=== PATIENT | male | born 1995 | race Caucasian/White ===

== ENCOUNTER 2020-07-11 12:46 | Emergency (ER) | payer MEDICAID, OTHER ==
[2020-07-11] MEDS ORDERED: Proparacaine 0.5% Ophth Soln 15 ML Bottle EYERT PRN (12:52)
[2020-07-11 12:55] VITALS: BP 177/88; PULSE 107
[2020-07-11] MEDS ORDERED: Fluorescein 1 MG Ophth Strip EYELF ONE (13:06)
[2020-07-11] MEDS ORDERED: Ciprofloxacin 0.3% Ophth Soln 2.5 ML Bottle EYELF ONE (13:16)
--- NOTE | 2020-07-11 13:21 | EDM.PDOC ---
ED HPI GENERAL MEDICAL PROBLEM - General Chief Complaint: Eye Problems Stated Complaint: METAL PC IN L EYE Time Seen by Provider: 07/11/20 12:55 Source of Information: Reports: Patient History Limitations: Reports: No Limitations - History of Present Illness INITIAL COMMENTS - FREE TEXT/NARRATIVE: Patient comes emergency department today with complaints of a metal particle in his left eye. This patient was grinding with a metal desk yesterday evening at work when he suddenly felt something strike his left eye. He thought that he got some of it out last night but he continues to have pain and he can see a foreign body on his cornea. He has no diplopia. No blurred vision. He denies a headache. His tetanus immunization is up-to-date. No Covid exposure no Covid symptoms. Left Eye Pain Score (Numeric/FACES): 1 - Related Data Allergies Allergy/AdvReac Type Severity Reaction Status Date / Time No Known Allergies Allergy Verified 07/11/20 12:57 Home Meds: Home Meds Acetaminophen/HYDROcodone [[place] 325-5 MG] 1 tab PO Q6H PRN #8 tablet 07/11/20 [Rx] Past Medical History - Past Health History Medical/Surgical History: Denies Medical/Surgical History Social & Family History - Tobacco Use Tobacco Use Status *Q: Current Every Day Tobacco User Years of Tobacco use: 5 Packs/Tins Daily: 1 ED ROS GENERAL - Review of Systems Review Of Systems: Comprehensive ROS is negative, except as noted in HPI. ED EXAM GENERAL W FULL EYE - Physical Exam Exam: See Below Exam Limited By: No Limitations General Appearance: Alert, WD/WN, No Apparent Distress Eye Exam: Bilateral Eye: EOMI, PERRL Eyelids: Bilateral: Normal Appearance Conjunctiva & Sclera: Right: Normal Appearance, Left: Foreign Body Cornea Exam: Left: Foreign Body (just outside the iris at the 3 oclock position there is a small black FB on the cornea. No other FB identified. ), Examined with Flourescein Extraocular Movements: Bilateral: Intact Pupils: Normal Accommodation Pupillary Size: Bilateral: 4 mm Pupillary Reaction: Bilateral: Brisk Ears: Normal External Exam Nose: Normal Inspection Throat/Mouth: Normal Inspection Head: Atraumatic, Normocephalic Neck: Normal Inspection, Supple Respiratory/Chest: No Respiratory Distress, Lungs Clear Cardiovascular: Normal Peripheral Pulses, Regular Rate, Rhythm (Male) Exam: Deferred (Female) Exam: Deferred Neurological: Alert, Oriented, Normal Cognition, No Motor/Sensory Deficits Psychiatric: Normal Affect, Normal Mood Skin Exam: Warm, Dry, Normal Color Course - Vital Signs Last Recorded V/S: Last Vital Signs Temp 97.7 F 07/11/20 12:50 Pulse 107 H 07/11/20 12:50 Resp 18 07/11/20 12:50 BP 177/88 H 07/11/20 12:50 Pulse Ox 97 07/11/20 12:50 - Orders/Labs/Meds Meds: Medications Discontinued Medications Generic Name Dose Route Start Last Admin Trade Name Freq PRN Reason Stop Dose Admin Ciprofloxacin 1 ml 07/11/20 13:16 07/11/20 13:26 Ciloxan 0.3% Ophth Soln EYELF 07/11/20 13:17 1 ml ONETIME ONE Administration Fluorescein Sodium 1 mg 07/11/20 13:06 07/11/20 13:10 Ful-Jackeline EYELF 07/11/20 13:07 1 mg ONETIME ONE Administration Proparacaine HCl 1 ml 07/11/20 12:52 07/11/20 13:06 Proparacaine 0.5% Ophth Soln EYERT 1 drop ASDIRECTED PRN Administration Other - Re-Assessments/Exams Free Text/Narrative Re-Assessment/Exam: 07/11/20 Initially patient's eye was anesthetized with proparacaine. Quite evident that there is a foreign material on the cornea just at the 3 o'clock position lateral of the iris. Using an eye spot I was able to easily remove the black foreign material. Fluorescein staining shows no other corneal abrasion there is a rust ring around the area of the foreign body removal. I was able to use a small ophthalmic bur and clean out the rest from the cornea. Patient tolerated the procedure well. Ciprofloxacin eyedrops were instilled. Natural course and disease process and healing was discussed with the patient. He is comfortable with this plan his questions were answered. Discharge directions as below are explained to the patient he was comfortable with this plan his questions are answered. Departure - Departure Time of Disposition: 13:17 Disposition: Home, Self-Care 01 Clinical Impression: Foreign body in eyeball, left Qualifiers: Encounter type: initial encounter Qualified Code(s): S05.52XA - Penetrating wound with foreign body of left eyeball, initial encounter - Discharge Information *PRESCRIPTION DRUG MONITORING PROGRAM REVIEWED*: Not Applicable *COPY OF PRESCRIPTION DRUG MONITORING REPORT IN PATIENT SANTO: Not Applicable Prescriptions: Acetaminophen/HYDROcodone [[place] 325-5 MG] 1 tab PO Q6H PRN #8 tablet PRN Reason: Pain Instructions: Eye Foreign Body, [id number] Referrals: PCP,None [Primary Care Provider] - Forms: ED Department Discharge Additional Instructions: Cipro drops, 2 drops to the left eye every 4 hrs while awake for the next 5 days. Bottle dispensed from the ED. Tylenol and or Ibuprofen as needed for pain. No contacts for 10 days. If pain not controlled with above. [place] 5/325, 1 tablet every 6 hrs with food as needed for pain. Caution sedation. Rx to [facility]. #8 You should be 90% better in 24 hrs and 100% better in 48 hrs. If you are not following this plan you need to recheck with optometry or opthamology. Return to the ED if new or worsening symptoms. Sepsis Event Note (ED) - Evaluation Sepsis Screening Result: No Definite Risk - Focused Exam Vital Signs: Vital Signs Temp Pulse Resp BP Pulse Ox 07/11/20 12:50 97.7 F 107 H 18 177/88 H 97
== END 2020-07-11 13:25 | disposition home or self-care (01) ==
LOC: VM.ED 12:46
DX: T15.02XA Foreign body in cornea, left eye, initial encounter (principal); F17.210 Nicotine dependence, cigarettes, uncomplicated
CPT/HCPCS: 99283; A9270

== ENCOUNTER 2022-04-27 17:49 | Emergency (ER) | payer MEDICAID ==
[2022-04-27 18:05] VITALS: BP 137/72; PULSE 104
[2022-04-27] MEDS ORDERED: cefTRIAXone 2 GM, Lidocaine 1% 4.2 ML IM ONE ×2 (18:15)
[2022-04-27] MEDS ORDERED: Lidocaine 1% with EPINEPHrine 1:100,000 20 ML MDV INFILT ONE (18:16)
[2022-04-27] MEDS ORDERED: Take Home: Sulfamethoxazole/Trimethoprim 800-160 MG Tab, 2 Tab Pack PO ONE (18:51)
== END 2022-04-27 19:12 | disposition home or self-care (01) ==
LOC: VM.ED 17:49
DX: L02.413 Cutaneous abscess of right upper limb (principal); F17.210 Nicotine dependence, cigarettes, uncomplicated
CPT/HCPCS: 10060; 87070; 87077; 96372; 99283-25; J0696

== ENCOUNTER 2023-08-26 09:09 | Emergency (ER) | payer OTHER, MEDICAID ==
[2023-08-26] MEDS ORDERED: Lidocaine 1% 10 ML MDV INJECT ONE (09:31)
[2023-08-26] MEDS ORDERED: Diphtheria,Pertussis(Acell),Tetanus Vaccine 0.5 ML Syringe IM ONE (09:59)
[2023-08-26 11:08] VITALS: BP 144/95; PULSE 75
== END 2023-08-26 10:15 | disposition home or self-care (01) ==
LOC: VM.ED 09:09
DX: S61.011A Laceration without foreign body of right thumb without damage to nail, initial encounter (principal); Z23 Encounter for immunization; W26.8XXA Contact with other sharp object(s), not elsewhere classified, initial encounter
CPT/HCPCS: 12002; 90471; 90715; 99282-25; 99283; J3490

== ENCOUNTER 2024-09-30 12:06 | Emergency (ER) | payer MEDICAID, OTHER ==
[2024-09-30 13:20] VITALS: BP 146/82; PULSE 103
== END 2024-09-30 12:22 | disposition left against medical advice (07) ==
LOC: VM.ED 12:06
DX: Z53.21 Procedure and treatment not carried out due to patient leaving prior to being seen by health care provider (principal)
CPT/HCPCS: 99283

== ENCOUNTER 2024-10-24 03:25 | Emergency (ER) | payer SELFPAY ==
[2024-10-24 03:46] VITALS: BP 159/79; PULSE 97
[2024-10-24] MEDS: Tetracaine HCl/PF 0.5% 4 ML Bottle EYERT ONE (03:57)
[2024-10-24] MEDS: Erythromycin Base 0.5% Ophth Oint 3.5 GM Tube EYEBOTH ONE (04:00)
[2024-10-24] MEDS: oxyCODONE 5 MG Tab PO ONE (04:10)
== END 2024-10-24 04:23 | disposition home or self-care (01) ==
LOC: VM.ED 03:25
DX: H16.133 Photokeratitis, bilateral (principal)
CPT/HCPCS: 99283; A9270-GY; J3490